=== PATIENT | female | born 1965 | race Caucasian/White ===

== ENCOUNTER 2022-02-02 08:33 | Outpatient (CLI) | payer OTHER, SELFPAY ==
[2022-02-02 13:43] LABS: Chloride* 100 mmol/L (96-114)
[2022-02-02 13:44] LABS: Sodium* 141 mmol/L (135-149)
[2022-02-02 13:46] LABS: Cholesterol* 202 mg/dL (90-199); Creatinine* 0.7 mg/dL (0.5-1.5); Estimated Glomerular Filt Rate 102 ml/min
[2022-02-02 13:47] LABS: Blood Urea Nitrogen* 17 mg/dL (7-30); Calcium* 9.9 mg/dL (8.4-10.6); Carbon Dioxide* 28 mmol/L (20-32); Glucose* 129 mg/dL (60-115); HDL Cholesterol* 58 mg/dL (>=50); LDL Cholesterol Calculated 131 mg/dL (<100); Triglycerides* 63 mg/dL (40-149)
== END 2022-02-02 08:34 | disposition home or self-care (01) ==
PROVIDERS: PCP Family Medicine; Visit Provider Family Medicine
DX: Z01.419 Encounter for gynecological examination (general) (routine) without abnormal findings (principal); I10 Essential (primary) hypertension; F41.9 Anxiety disorder, unspecified; Z13.6 Encounter for screening for cardiovascular disorders
CPT/HCPCS: 80048; 80061

== ENCOUNTER 2023-02-14 09:50 | Outpatient (CLI) | payer OTHER, SELFPAY | END 2023-02-14 09:51 | disposition home or self-care (01) | PROVIDERS: PCP Family Medicine; Visit Provider Family Medicine | DX: Z00.00 Encounter for general adult medical examination without abnormal findings (principal); I10 Essential (primary) hypertension; Z13.6 Encounter for screening for cardiovascular disorders | CPT/HCPCS: 80048; 80061 ==

== ENCOUNTER 2024-02-26 10:07 | Outpatient (CLI) | payer OTHER, SELFPAY | END 2024-02-26 10:08 | disposition home or self-care (01) | PROVIDERS: PCP Family Medicine; Visit Provider Family Medicine | DX: I10 Essential (primary) hypertension (principal); Z13.29 Encounter for screening for other suspected endocrine disorder | CPT/HCPCS: 80048; 84439 ==

== ENCOUNTER 2025-02-17 10:00 | Outpatient (CLI) | payer OTHER, SELFPAY ==
[2025-02-19 03:28] LABS: HPV Source Cervix
[2025-02-20 10:47] LABS: Pap Test Digital Imaging Done
== END 2025-02-17 10:01 | disposition home or self-care (01) ==
PROVIDERS: PCP Family Medicine; Visit Provider Family Medicine
DX: I10 Essential (primary) hypertension (principal); Z12.4 Encounter for screening for malignant neoplasm of cervix; Z11.51 Encounter for screening for human papillomavirus (HPV)
CPT/HCPCS: 80048; 87624; 87625; 88141; 88142; 88175